=== PATIENT | male | born 1960 | race Hispanic/Latino ===

== ENCOUNTER 2021-01-22 07:51 | Day surgery (SDC) | payer BC ==
[2021-01-21 09:50] VITALS: BP 143/80
[2021-01-21 10:13] LABS: BASOPHILS % (AUTO) 0.9 % (0.0-5.0); EOSINOPHILS % (AUTO) 2.2 % (0.0-8.0); HEMATOCRIT 41.5 % (42-54); LYMPHOCYTES % (AUTO) 26.6 % (21.0-51.0); MEAN CORPUSCULAR HEMOGLOBIN 31.9 pg (27.0-33.0); MEAN CORPUSCULAR HGB CONC 35.2 g/dL (32.0-36.0); MEAN CORPUSCULAR VOLUME 90.6 fL (79-99); MONOCYTES % (AUTO) 7.6 % (3.0-13.0); NEUTROPHILS % (AUTO) 61.7 % (40.0-77.0); PLATELET COUNT (AUTO) 218 K/uL (130-400); RED BLOOD CELL COUNT(AUTO) 4.58 MIL/uL (4.50-6.20); RED CELL DISTRIBUTION WIDTH 12.1 % (11.0-15.5); WHITE BLOOD COUNT (AUTO) 8.9 K/uL (4.8-10.8)
[2021-01-21 10:22] LABS: CREATININE 0.8 mg/dL (0.5-1.5); POTASSIUM 4.2 mmol/L (3.5-5.1)
[2021-01-22] VITALS (17 sets, daily range): BP systolic 112–136; BP diastolic 62–84
[~2021-01-22] VITALS: Ht 172.7 cm; Wt 103.8 kg
[~2021-01-22 07:51] MED LIST: ASPI-1197 PO; ATOR40TA69 PO; CETI-89 PO; CHOL3000 PO; DULA0.75 SQ; ENAL5TAB17 PO; FAMO40TA7 PO; FINA5TAB41 PO; FOLI0.4T6 PO; MELO10CA3 PO; METF-446 PO; NATE60TA8 PO; TAMS0.4C32 PO
[2021-01-22] MEDS ORDERED: 0.9%NACL 1000ML 1,000 ML IV ONE (08:54)
[2021-01-22] MEDS: CEFAZOLIN SODIUM 1 GM VIAL ONE ×2 (09:20→11:42)
[2021-01-22] MEDS ORDERED: PROPOFOL 10 MG/ML 20ML VIAL IV ONE (10:01)
[2021-01-22] MEDS ORDERED: LIDOCAINE PF 100MG/5ML (2%) SYRINGE 5ML ONE (10:01)
[2021-01-22] MEDS ORDERED: SUCCINYLCHOLINE CHLORIDE 20 MG/ML 10 ML VIAL ONE (10:01)
[2021-01-22] MEDS ORDERED: ROCURONIUM 10MG/1ML SYR 10 MG/ML ML ONE (10:01)
[2021-01-22] MEDS ORDERED: FENTANYL CITRATE PF 50 MCG/1 ML 2ML VIAL ONE (10:02)
[2021-01-22] MEDS ORDERED: ROPIVACAINE 0.5% 5MG/ML 30ML IJ ONE (10:07)
[2021-01-22] MEDS ORDERED: EPINEPHRINE 1 MG/ML 30ML VIAL IJ ONE (10:10)
[2021-01-22] MEDS ORDERED: GLYCOPYRROLATE 1 MG/5 ML SYRINGE ONE (11:17)
[2021-01-22] MEDS ORDERED: EPHEDRINE SULFATE 50 MG/ML AMPULE ONE (11:22)
[2021-01-22] MEDS ORDERED: KETOROLAC 30MG VIAL (30MG/ML) ONE (12:23)
[2021-01-22] MEDS ORDERED: NEOSTIGMINE 5MG/5ML SYR IV ONE (12:28)
[2021-01-22] MEDS ORDERED: MEPERIDINE-PF 25 MG/ML SYG ONE (12:30)
[2021-01-22] MEDS ORDERED: HYDR-4060 PO (12:30)
[2021-01-22] MEDS ORDERED: CEPH500B PO (12:30)
[2021-01-22] MEDS ORDERED: ONDANSETRON 4MG INJ ONE (13:25)
== END 2021-01-22 14:50 | disposition home or self-care (01) ==
LOC: DAH 07:51
PROVIDERS: ATTEND Orthopaedic Surgery
DX: M75.121 Complete rotator cuff tear or rupture of right shoulder, not specified as traumatic (principal); Z20.822 Contact with and (suspected) exposure to COVID-19; M75.41 Impingement syndrome of right shoulder; M19.011 Primary osteoarthritis, right shoulder; I10 Essential (primary) hypertension; E11.9 Type 2 diabetes mellitus without complications; K21.9 Gastro-esophageal reflux disease without esophagitis; M19.90 Unspecified osteoarthritis, unspecified site; Z79.899 Other long term (current) drug therapy; Z98.890 Other specified postprocedural states; Z90.89 Acquired absence of other organs; Z98.52 Vasectomy status; Z82.49 Family history of ischemic heart disease and other diseases of the circulatory system; Z83.3 Family history of diabetes mellitus
CPT/HCPCS: 29824; 29826; 29827; 36415; 64415; 76942; 80048; 82948 ×2; 85025; 87635; A4215; A4221; A4222; A4223; A4565; A4649 ×5; A4663; A4930 ×2; A5120; A6204; C1713 ×2; C9803; G0168; J0171; J0330; J0690; J1885; J2001; J2175; J2405; J2704; J2710; J2795; J3010; J3490 ×2; J7030 ×2

== ENCOUNTER 2021-05-11 14:00 | Observation (INO) | payer BC ==
[~2021-05-11] VITALS: Ht 172.7 cm; Wt 99.9 kg
[2021-05-11 12:56] LABS: BASOPHILS % (AUTO) 0.9 % (0.0-5.0); EOSINOPHILS % (AUTO) 1.4 % (0.0-8.0); HEMATOCRIT 41.1 % (42-54); LYMPHOCYTES % (AUTO) 27.5 % (21.0-51.0); MEAN CORPUSCULAR HEMOGLOBIN 31.5 pg (27.0-33.0); MEAN CORPUSCULAR HGB CONC 35.8 g/dL (32.0-36.0); MEAN CORPUSCULAR VOLUME 88.2 fL (79-99); NEUTROPHILS % (AUTO) 61.5 % (40.0-77.0); PLATELET COUNT (AUTO) 231 K/uL (130-400); RED BLOOD CELL COUNT(AUTO) 4.66 MIL/uL (4.50-6.20); RED CELL DISTRIBUTION WIDTH 11.9 % (11.0-15.5); WHITE BLOOD COUNT (AUTO) 9.8 K/uL (4.8-10.8)
[~2021-05-11 14:00] MED LIST changes: -ATOR40TA69 PO; -CHOL3000 PO; -ENAL5TAB17 PO; -METF-446 PO; -TAMS0.4C32 PO
[2021-05-13 08:55] VITALS: BP 125/75
[2021-05-13] MEDS ORDERED: FISH1CAP63 PO (09:28)
[2021-05-13] MEDS ORDERED: ENAL5TAB17 PO (09:28)
[2021-05-13] MEDS ORDERED: ATOR40TA71 PO (09:28)
[2021-05-13] MEDS ORDERED: METF-446 PO (09:28)
[2021-05-13] MEDS ORDERED: FENO48TA10 PO (09:28)
[2021-05-13] MEDS ORDERED: MV-M1TAB20 PO (09:28)
[2021-05-13] MEDS ORDERED: ATOR-2 PO (09:28)
[2021-05-14] VITALS (28 sets, daily range): BP systolic 121–151; BP diastolic 62–87
[2021-05-14] MEDS: CEFAZOLIN SODIUM 1 GM VIAL IVP SCH ×4 (06:00→15:14)
[2021-05-14] MEDS ORDERED: 0.9%NACL 1000ML 1,000 ML IV ONE (06:36)
[2021-05-14] MEDS ORDERED: CEFAZOLIN SODIUM 1 GM VIAL ONE (06:56)
[2021-05-14] MEDS ORDERED: BUPIVACAINE/EPI/PF 0.25% 30ML VIAL IJ ONE (06:56)
[2021-05-14] MEDS ORDERED: THROMBIN-JMI 20000 UNIT KIT TP ONE (06:56)
[2021-05-14] MEDS ORDERED: SUCCINYLCHOLINE CHLORIDE 20 MG/ML 10 ML VIAL ONE (07:03)
[2021-05-14] MEDS ORDERED: LIDOCAINE PF 100MG/5ML (2%) SYRINGE 5ML ONE (07:03)
[2021-05-14] MEDS ORDERED: DEXAMETHASONE SOD PHOSPHATE 10MG/ML 1ML VIAL ONE ×2 (07:03→07:15)
[2021-05-14] MEDS ORDERED: NEOSTIGMINE 5MG/5ML SYR IV ONE (07:04)
[2021-05-14] MEDS ORDERED: PROPOFOL 10 MG/ML 20ML VIAL IV ONE (07:04)
[2021-05-14] MEDS ORDERED: MIDAZOLAM HCL 1 MG/ML 2ML VIAL ONE (07:04)
[2021-05-14] MEDS ORDERED: ONDANSETRON 4MG INJ ONE (07:04)
[2021-05-14] MEDS ORDERED: GLYCOPYRROLATE 1 MG/5 ML SYRINGE ONE (07:04)
[2021-05-14] MEDS ORDERED: FENTANYL CITRATE PF 50 MCG/1 ML 2ML VIAL ONE ×4 (07:05→10:22)
[2021-05-14] MEDS ORDERED: ROCURONIUM 10MG/1ML SYR 10 MG/ML ML ONE (07:05)
[2021-05-14] MEDS ORDERED: PHENYLEPHRINE HCL 10 MG/ML 1ML VIAL IV ONE (07:19)
[2021-05-14] MEDS ORDERED: ARTIFICIAL TEARS 3.5 GM OINTMENT ONE (08:11)
[2021-05-14] MEDS ORDERED: PROMETHAZINE HCL 25 MG/ML 1ML AMPULE IM PRN (11:30)
[2021-05-14] MEDS ORDERED: NATEGLINIDE 60 MG PO SCH (11:30)
[2021-05-14] MEDS ORDERED: MORPHINE 2 MG SYG IVP PRN (11:30)
[2021-05-14] MEDS ORDERED: HYDROCODONE/ACETAMINOPHEN 5/325 MG TAB PO PRN (11:30)
[2021-05-14] MEDS ORDERED: ATORVASTATIN 40 MG TABLET PO SCH ×2 (11:30→21:00)
[2021-05-14] MEDS ORDERED: 0.9%NACL 10ML VIAL IVP PRN (11:30)
[2021-05-14] MEDS: DEXAMETHASONE SOD PHOSPHATE 4 MG/ML 1ML VIAL IVP SCH ×2 (11:30→15:14)
[2021-05-14] MEDS ORDERED: NON-FORMULARY MEDICATION 1 EACH (Atorvastatin Calcium 80 MG) PO SCH (11:30)
[2021-05-14] MEDS: PHARMACY COMMUNICATION MISC SCH ×2 (13:00→13:24)
[2021-05-14] MEDS: LACTATED RINGERS 1000ML 1,000 ML IV SCH (13:14)
[2021-05-14] MEDS ORDERED: DEXTROSE 50%-WATER 50 ML DISP.SYRIN IV PRN (14:00)
[2021-05-14] MEDS ORDERED: GLUCAGON 1MG KIT 1 MG ML IM PRN (14:00)
[2021-05-14] MEDS: INSULIN HUMULIN R 100 UNIT/ML 3ML SQ SCH ×2 (15:13→22:05)
[2021-05-14] MEDS ORDERED: METFORMIN HCL 500 MG TABLET ONE (15:18)
[2021-05-14] MEDS: METFORMIN HCL 500 MG TABLET PO SCH (15:19)
[2021-05-14] MEDS: NATEGLINIDE 60 MG PO SCH (15:34)
[2021-05-14] MEDS ORDERED: NON-FORMULARY MEDICATION 1 EACH (Metformin HCl 1,000 MG) PO SCH (21:00)
[2021-05-14] MEDS ORDERED: NON-FORMULARY MEDICATION 1 EACH (Famotidine 40 MG) PO SCH (21:00)
[2021-05-14] MEDS ORDERED: FAMOTIDINE 20MG TAB PO SCH (21:00)
[2021-05-14] MEDS ORDERED: ENALAPRIL MALEATE 5 MG TAB PO SCH (21:00)
[2021-05-14] MEDS ORDERED: NON-FORMULARY MEDICATION 1 EACH (Fish Oil/Dha/Epa (Fish Oil 1,200 mg Fish Oil) 1 EACH) PO SCH (21:00)
[2021-05-14] MEDS ORDERED: FINASTERIDE 5 MG TABLET PO SCH (21:00)
[2021-05-14] MEDS: FISH OIL 1000 MG/CAP PO SCH (21:00)
[2021-05-15] MEDS: LACTATED RINGERS 1000ML 1,000 ML IV SCH (00:50)
[2021-05-15] MEDS: DEXAMETHASONE SOD PHOSPHATE 4 MG/ML 1ML VIAL IVP SCH ×2 (01:34→05:55)
[2021-05-15] MEDS: CEFAZOLIN SODIUM 1 GM VIAL IVP SCH (03:30)
[2021-05-15 04:28] VITALS: BP 126/74
[2021-05-15] MEDS: INSULIN HUMULIN R 100 UNIT/ML 3ML SQ SCH (05:56)
[2021-05-15] MEDS: NATEGLINIDE 60 MG PO SCH (07:30)
[2021-05-15] MEDS ORDERED: ATORVASTATIN 40 MG TABLET PO SCH (08:00)
[2021-05-15 08:36] VITALS: BP 135/76
[2021-05-15] MEDS: METFORMIN HCL 500 MG TABLET PO SCH (08:44)
[2021-05-15] MEDS: FISH OIL 1000 MG/CAP PO SCH (08:46)
[2021-05-15] MEDS ORDERED: FOLIC ACID 0.4 MG PO SCH (09:00)
[2021-05-15] MEDS ORDERED: MELOXICAM SUBMICRONIZED PO SCH (09:00)
[2021-05-15] MEDS ORDERED: MELOXICAM 7.5 MG TABLET PO SCH (09:00)
[2021-05-15] MEDS ORDERED: [UNRECOGNIZED DRUG - OTHER] PO SCH (09:00)
[2021-05-15] MEDS ORDERED: MV MN PO SCH (09:00)
[2021-05-15] MEDS ORDERED: CETIRIZINE HCL 5 MG TABLET PO SCH (09:00)
[2021-05-15] MEDS ORDERED: IRON PO SCH (09:00)
[2021-05-15] MEDS ORDERED: FINASTERIDE 5 MG TABLET PO SCH (09:00)
[2021-05-15] MEDS ORDERED: FENOFIBRATE NANOCRYSTALLIZED 48 MG TAB PO SCH (09:00)
[2021-05-15] MEDS ORDERED: FOLIC ACID 1 MG TABLET PO SCH (09:00)
[2021-05-15] MEDS ORDERED: HERBAL CMPLX PO SCH (09:00)
[2021-05-15] MEDS ORDERED: NON-FORMULARY MEDICATION 1 EACH (Cetirizine HCl (Zyrtec) 10 MG) PO SCH (09:00)
[2021-05-15 10:49] VITALS: BP 124/75
[2021-05-15] MEDS ORDERED: FLU VACC QS2021-22(6MOS UP)/PF 60 MCG/0.5 ML ML IM ONE (11:00)
[2021-05-15] MEDS ORDERED: FLU VACC QS2021-22(6MOS UP)/PF 60 MCG/0.5 ML ML IM SCH (11:00)
[2021-05-16] MEDS ORDERED: ASPIRIN 81MG CHEW TAB PO SCH (09:00)
[2021-05-21] MEDS ORDERED: (Dulaglutide (Trulicity) 0.75 MG) SQ SCH (09:00)
== END 2021-05-15 14:01 | disposition home or self-care (01) ==
LOC: DAHIP 05-14 05:58 → 4BH 05-14 11:41 → EDSTATUS 05-14 14:00
PROVIDERS: ADMIT Neurological Surgery; ATTEND Neurological Surgery
DX: M47.22 Other spondylosis with radiculopathy, cervical region (principal); Z20.822 Contact with and (suspected) exposure to COVID-19; I10 Essential (primary) hypertension; K21.9 Gastro-esophageal reflux disease without esophagitis; E66.9 Obesity, unspecified; E11.9 Type 2 diabetes mellitus without complications; E78.5 Hyperlipidemia, unspecified; I45.10 Unspecified right bundle-branch block; M25.78 Osteophyte, vertebrae; Z23 Encounter for immunization; Z79.899 Other long term (current) drug therapy
CPT/HCPCS: 22551; 22552; 22846; 36415; 71045; 72020; 80051; 82948 ×6; 85025; 87635; 90471; 96372 ×2; 96374; 96375; 96376; A4215; A4216; A4221; A4222; A4223; A4344; A4510; A4600; A4649 ×2; A4663; A6260; C1776; G0378 ×26; J0330; J0690 ×4; J1100 ×5; J1815 ×3; J2001; J2250; J2370; J2405; J2704; J2710; J3010 ×4; J3490 ×2; J7030 ×2; J7120; Q2035; J2550

== ENCOUNTER → 2024-10-17 | Outpatient (CLI) | payer BC ==
[~2024-10-17] MED LIST changes: +ATOR-2 PO; +ATOR40TA71 PO; +ENAL-87 PO; +FENO48TA10 PO; +FISH1CAP63 PO; +METF-446 PO; +MV-M1TAB20 PO; +NATE60TA14 PO; -NATE60TA8 PO
--- NOTE | 2024-10-17 16:29 | HMCSR ---
APPROVED REPORT EXAM: Two-dimensional and M-mode echocardiogram with Doppler and color Doppler. INDICATION ICD: Z01.818 2D Dimensions RVDd4.5 cmLVEF(%)66.4 (>50%)LVED Vol(simp.)139.0 mL IVSd0.9 (0.7-1.1cm)FS(%)37 %LVES Vol(simp.)51.0 mL LVDd4.8 (3.8-5.6cm)LA (2D)4.6 (1.6-4.0cm)LVEF(%, simp.)63 % PWd0.8 (0.7-1.1cm)Ao Root(2D)3.3 (2.0-3.7cm)LA ESV INDEX (BP)28.69 mL/m2 IVSs1.5 cmLVOT diam2.5 (1.8-2.4cm) LVDs3.0 (2.5-4.0cm) PWs1.4 cm M-Mode Dimensions EPSS0.3 cm LA (MM)4.5 (1.6-4.0cm) Ao Root(MM)2.8 (2.0-3.7cm) Aortic Valve AoV Vmax2.0 m/Marvin Peak GR15.9 mmHgLVOT Vmax1.7 m/s AoV VTI0.4 mAo Mean GR8.4 mmHgLVOT VTI0.30 m ANNA (VMAX)4.04 cm2AVA (VTI) 4.0 cm2 Mitral Valve MV E Vmax87.5 cm/sDECEL Zqta887 ms MV A Vmax59.3 cm/sP 1/2 T50 ms E/A ratio1.5MVA (PHT)4.4 cm2 TDI E/E' Lciikz69.4E/E' Twtfguq79.0 Medial E' Peak V7.70 cm/sLateral E' Peak V7.92 cm/s Pulmonary Valve PV Vmax1.1 m/sPV VTI0.22 mPV Mean GR2.9 mmHg PV Peak GR5.3 mmHgPI End Maritza. Davidson 60.7 cm/s Tricuspid Valve TR Vmax2.5 m/sRAP (EST) 8 fqHwKUMX46.7 mmHg TR Peak GR27.7 mmHg Left Ventricle The left ventricle is normal size. Normal wall motion There is normal left ventricular wall thickness . LVEF is 60-65%. The left ventricular diastolic function is normal. Right Ventricle The right ventricle is mildly dilated. The right ventricular systolic function is normal. Atria The left atrium size is normal. The right atrium is borderline dilated. Aortic Valve The aortic valve is normal in structure. No aortic regurgitation is present. There is no aortic valvu lar stenosis. Mitral Valve The mitral valve is normal in structure. There is trace mitral valve regurgitation noted. There is no mitral valve stenosis. Tricuspid Valve The tricuspid valve is normal in structure. There is mild tricuspid valve regurgitation noted. Pulmonic Valve The pulmonary valve is normal in structure. There is mild pulmonic valvular regurgitation. Great Vessels The aortic root is normal in size. IVC is not well visualized. Pericardium There is no pericardial effusion. Other Information Quality : Adequate Conclusion LVEF is 60-65%. The left ventricular diastolic function is normal. There is normal left ventricular wall thickness. Normal diastolic function The left ventricle is normal size. Normal wall motion The right ventricle is mildly dilated. The right atrium is borderline dilated. There is no pericardial effusion. Normal pulmonary pressures Study quality was adequate
== END | disposition home or self-care (01) ==
LOC: RAH 13:18
PROVIDERS: ATTEND Internal Medicine Cardiovascular Disease
DX: Z01.810 Encounter for preprocedural cardiovascular examination (principal); I08.8 Other rheumatic multiple valve diseases
CPT/HCPCS: 93306

== ENCOUNTER → 2025-01-10 | Outpatient (CLI) | payer BC ==
--- NOTE | 2025-01-12 11:06 | HMCIMG ---
EXAMINATION: NONCONTRAST CT SCAN OF THE RIGHT LOWER LIMB CLINICAL HISTORY: Pain in the right knee. COMPARISON: None provided. TECHNIQUE: Thin collimated axial CT images of the right lower limb were obtained. Sagittal and coronal reformatted images also submitted for interpretation. The total dose length product has been recorded in the electronic medical record. FINDINGS: No acute fracture or dislocation. 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 Rest of the femur appears normal. There is total knee replacement status with implants in situ. Rest of the tibia and the fibula and other included bones appear normal. There is a calcaneal spur. The ankle and subtalar joints are normal. The muscles and the tendons are normal. IMPRESSION: No acute fracture or dislocation. 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 Status post total knee replacement with implants in situ. Calcaneal spur. /[place]
== END | disposition home or self-care (01) ==
LOC: RAH 12:54
PROVIDERS: ATTEND Orthopaedic Surgery
DX: M77.31 Calcaneal spur, right foot (principal); M25.80 Other specified joint disorders, unspecified joint; M25.561 Pain in right knee; Z96.659 Presence of unspecified artificial knee joint
CPT/HCPCS: 73700